=== PATIENT | female | born 1950 | race Caucasian/White ===

== ENCOUNTER 2016-08-08 13:06 | Emergency (ER) | payer OTHER ==
[~2016-08-08] VITALS: Ht 157.5 cm; Wt 77.2 kg
[~2016-08-08 13:06] MED LIST: ADVAIR 250/501 DISK IH; AVELOX400 MG PO; Ambien PO; Ascorbic Acid,Ester- PO; CLARITIN,ALAVAR10 MG PO; ENDOCET 5-3251 EACH PO; Elavil PO; Estrace PO; Flonase BOTH NARES; Levothroid,Synthroid PO; MIRALAX, GLYCO255 GM PO; MOBIC15 MG PO; OxyCODONE PO; PROZAC40 MG PO; Prilosec PO; Proventil,Ventolin H IH; Singulair PO
[2016-08-08] MEDS ORDERED: FLUOXETINE HCL20 M1 PO (15:18)
[2016-08-08] MEDS ORDERED: HYDROCODON-ACE1 EAC7 PO (15:18)
[2016-08-08] MEDS ORDERED: PROAIR RESPICL90 MCG IH (15:19)
[2016-08-08] MEDS ORDERED: ESTRADIOL0.5 MG PO (15:20)
[2016-08-08] MEDS ORDERED: LEVO-T75 MCG PO (15:21)
[2016-08-08] MEDS ORDERED: OMEPRAZOLE20 MG PO (15:22)
[2016-08-08] MEDS ORDERED: ZOLPIDEM TARTRAT5 MG PO (15:22)
[2016-08-08] MEDS ORDERED: MIRALAX17 GM PO (15:22)
[2016-08-08] MEDS ORDERED: MOBIC15 MG PO (15:23)
[2016-08-08] MEDS ORDERED: VITAMIN B12 PO (15:23)
[2016-08-08] MEDS ORDERED: CALTRATE PLUS1 EACH PO (15:24)
[2016-08-08] MEDS ORDERED: MULTIVITAMIN1 EAC2 PO (15:24)
[2016-08-08] MEDS ORDERED: ZOFRAN ODT4 MG PO (17:27)
[2016-08-08] MEDS ORDERED: PREDNISONE10 MG PO (17:27)
[2016-08-08] MEDS ORDERED: DILAUDID2 MG PO (17:27)
[2016-08-08] MEDS ORDERED: VALIUM5 MG PO (17:27)
[2016-08-08 17:40] VITALS: BP 132/84
== END 2016-08-08 17:47 | disposition home or self-care (01) ==
LOC: EME 13:06
DX: M54.5 Low back pain (principal); G89.29 Other chronic pain; M79.604 Pain in right leg; Z98.1 Arthrodesis status; J45.909 Unspecified asthma, uncomplicated
CPT/HCPCS: 72100; 99281; 99285; J3010

== ENCOUNTER → 2016-12-30 | Outpatient (CLI) | payer OTHER ==
[~2016-12-30] MED LIST changes: +CALTRATE PLUS1 EACH PO; +DILAUDID2 MG PO; +ESTRADIOL0.5 MG PO; +FLUOXETINE HCL20 M1 PO; +HYDROCODON-ACE1 EAC7 PO; +LEVO-T75 MCG PO; +MIRALAX17 GM PO; +MULTIVITAMIN1 EAC2 PO; +OMEPRAZOLE20 MG PO; +PREDNISONE10 MG PO; +PROAIR RESPICL90 MCG IH; +VALIUM5 MG PO; +VITAMIN B12 PO; +ZOFRAN ODT4 MG PO; +ZOLPIDEM TARTRAT5 MG PO
== END | disposition home or self-care (01) ==
LOC: NUC 09:32
DX: M21.20 Flexion deformity, unspecified site (principal); M48.06 Spinal stenosis, lumbar region; M51.36 Other intervertebral disc degeneration, lumbar region; M43.8X5 Other specified deforming dorsopathies, thoracolumbar region; M41.9 Scoliosis, unspecified
CPT/HCPCS: 72081; 72114; 72131; 78315

== ENCOUNTER → 2017-01-06 | Outpatient (CLI) | payer OTHER | END | disposition home or self-care (01) | LOC: NUC 09:18 | DX: M47.895 Other spondylosis, thoracolumbar region (principal); M41.85 Other forms of scoliosis, thoracolumbar region; Z96.653 Presence of artificial knee joint, bilateral; Z96.612 Presence of left artificial shoulder joint; R93.7 Abnormal findings on diagnostic imaging of other parts of musculoskeletal system | CPT/HCPCS: 78315; A9503 ==

== ENCOUNTER → 2017-03-22 | Outpatient (CLI) | payer OTHER ==
[~2017-03-22] MED LIST changes: +AMITRIPTYLINE H50 MG PO; +MELOXICAM15 MG PO
== END | disposition home or self-care (01) ==
LOC: NUC 07:24
DX: M54.5 Low back pain (principal); M19.90 Unspecified osteoarthritis, unspecified site; M43.10 Spondylolisthesis, site unspecified; M81.0 Age-related osteoporosis without current pathological fracture; M53.3 Sacrococcygeal disorders, not elsewhere classified; M41.9 Scoliosis, unspecified; Z98.1 Arthrodesis status
CPT/HCPCS: 78806; 78999; A9556

== ENCOUNTER → 2017-11-17 | Outpatient (CLI) | payer OTHER ==
[~2017-11-17] VITALS: Ht 156.2 cm; Wt 76.7 kg
[~2017-11-17] MED LIST changes: +IMODIUM A-D2 M2 PO; +IRON325 M1 PO; +MELATONIN10 M1 PO; +PROZAC20 MG PO
== END | disposition home or self-care (01) ==
LOC: AMB 06:40
PROC: 0DBE8ZX Excision of Large Intestine, Via Natural or Artificial Opening Endoscopic, Diagnostic (ICD-10-PCS; principal; 2017-11-17)
DX: K52.832 Lymphocytic colitis (principal); K57.30 Diverticulosis of large intestine without perforation or abscess without bleeding; K64.8 Other hemorrhoids; G47.33 Obstructive sleep apnea (adult) (pediatric); E03.9 Hypothyroidism, unspecified; J45.909 Unspecified asthma, uncomplicated; K21.9 Gastro-esophageal reflux disease without esophagitis; Z88.1 Allergy status to other antibiotic agents; Z91.013 Allergy to seafood
CPT/HCPCS: 88305; 88313